=== PATIENT | male | born 1940 | race Asian ===

== ENCOUNTER 2017-04-30 12:46 | Emergency (ER) | payer OTHER ==
[~2017-04-30] VITALS: Ht 165.1 cm; Wt 104.3 kg
[~2017-04-30 12:46] MED LIST: LABE200T28 PO; NIFE-11 PO; TAMS-11 PO
[2017-04-30 12:54] VITALS: BP_SYST 158
[2017-04-30 14:28] VITALS: BP_SYST 170
== END 2017-04-30 14:28 | disposition home or self-care (01) ==
LOC: SED 12:46
DX: M10.9 Gout, unspecified (principal); I10 Essential (primary) hypertension; Z85.46 Personal history of malignant neoplasm of prostate
CPT/HCPCS: 99283

== ENCOUNTER 2018-04-01 19:18 | Inpatient (IN) | payer OTHER ==
[~2018-04-01] VITALS: Ht 157.5 cm; Wt 75.7 kg
[2018-04-01 19:31] VITALS: BP_SYST 165
--- NOTE | 2018-04-01 19:32 | NUR ---
Dr Perez examining patient at triage room for possible CVA symptoms
--- NOTE | 2018-04-01 19:33 | NUR ---
Placed in room 06 . Placed on radiation monitor, blood pressure machine and pulse oximeter. To gown for exam. Side rails up.
[2018-04-01 19:38] VITALS: BP_SYST 165
--- NOTE | 2018-04-01 19:40 | NUR ---
Patient AAO x 3, sitting laying in bed brought in ACLS for c/o severe weakness with possible right sided weakness. Patient states weakness came on last night with increasing weakness througout the day. Patient able to communicate needs, but states he "feels so weak I can't move". Will continue to monitor closely.
[2018-04-01] MEDS ORDERED: NS 500 ML IV ONE (20:15)
[2018-04-01] MEDS ORDERED: METOPROLOL TARTRATE 5 MG/5 ML VIAL IVP ONE ×2 (20:15→22:00)
[2018-04-01] MEDS ORDERED: NACL 0.9% 500 ML IV ONE (20:15)
[2018-04-01 20:25] LABS: ANION GAP 10 (5-15); CALCIUM 9.3 mg/dL (8.4-11.0); CHLORIDE 106 mmol/L (98-107); CREATININE 1.58 mg/dL (0.55-1.30); GLUCOSE 108 mg/dL (70-99); SODIUM SERUM 141 mmol/L (136-145); UREA NITROGEN, BLOOD 25 mg/dL (8-21)
[2018-04-01 20:26] LABS: BASOPHILS # (AUTO) 0.1 K/uL (0.0-0.2); EOSINOPHILS # (AUTO) 0.2 K/uL (0.0-0.4); EOSINOPHILS % (AUTO) 4.1 % (0.0-4.0); HEMOGLOBIN 14.9 g/dL (14.0-18.0); LYMPHOCYTES # (AUTO) 1.4 K/uL (1.0-5.5); LYMPHOCYTES % (AUTO) 27.9 % (20.5-51.5); MEAN CORPUSCULAR HEMOGLOBIN 30 pg (27-31); MEAN CORPUSCULAR HGB CONC 33 % (32-36); MEAN CORPUSCULAR VOLUME 93 fL (79.0-98.0); MONOCYTES # (AUTO) 0.5 K/uL (0.0-1.0); MONOCYTES % (AUTO) 10.4 % (1.7-9.3); NEUTROPHILS % (AUTO) 55.6 % (40.0-70.0); PLATELET COUNT (AUTO) 198 K/uL (130-430); RED BLOOD CELL COUNT(AUTO) 4.96 MIL/uL (4.2-6.2); RED CELL DISTRIBUTION WIDTH 13.1 % (9.0-15.0); WHITE BLOOD COUNT (AUTO) 5.2 K/uL (4.8-10.8)
[2018-04-01 20:29] LABS: ALANINE AMINOTRANSFERASE 25 U/L (12-78); ALBUMIN 3.8 g/dL (3.4-4.8); ASPARTATE AMINOTRANSFERASE 16 U/L (10-37); TOTAL BILIRUBIN 1.2 mg/dL (0.0-1.0)
[2018-04-01] MEDS ORDERED: ONDANSETRON HCL 4 MG/2 ML VIAL IVP ONE (20:30)
--- NOTE | 2018-04-01 20:40 | NUR ---
Patient resting in bed, vital signs stable, no neurological deficits noted. Able to speak and verbalize needs. Will continue to monitor.
[2018-04-01 21:37] LABS: PROTHROMBIN TIME 10.4 SECS (9.5-12.5)
--- NOTE | 2018-04-01 21:40 | NUR ---
ER at bedside speaking with patient and patient's .
[2018-04-01 21:48] LABS: BILIRUBIN,URINE NEGATIVE (NEGATIVE); BLOOD, URINE NEGATIVE (NEGATIVE); CLARITY/URINE CLEAR (CLEAR); COLOR,URINE YELLOW (YELLOW); GLUCOSE,URINE NEGATIVE (NEGATIVE); KETONES,URINE NEGATIVE (NEGATIVE); LEUKOCYTE ESTERASE ,URINE NEGATIVE (NEGATIVE); NITRITE, URINE NEGATIVE (NEGATIVE); PROTEIN URINE 1+ (NEGATIVE); UROBILINOGEN,URINE 0.2 (0.2-1.0)
[2018-04-01] MEDS ORDERED: NIFE90TA48 PO (21:51)
[2018-04-01] MEDS ORDERED: LABE300T PO (21:51)
[2018-04-01] MEDS ORDERED: LOSA100T11 PO (21:52)
[2018-04-01 21:57] LABS: BACTERIA,URINE RARE /HPF (None Seen); RBC,URINE 0-3 /HPF (0-3); WBC,URINE 0-3 /HPF (0-3)
[2018-04-01 21:58] LABS: MUCUS,URINE None Seen /LPF (None Seen)
--- NOTE | 2018-04-01 22:13 | NUR ---
Patient BP: 191/97 at this time. Patient medicated, unable to transfer to TELE at this time until BP has reached a more stable reading. Will continue to monitor. Charge nurse for ED and TELE aware.
--- NOTE | 2018-04-01 22:15 | NUR ---
Patient will be admitted to care of Dr. Muñoz. Admitted to Tele unit. Will go to room 122b. Belongings list completed. Summary report printed. Report will be given at bedside, will remain in ED until BP is stable at this time.
[2018-04-01] MEDS ORDERED: HYDROcodone/ACETAMIN 5-325 MG TAB (NORCO/ VICODIN) PO PRN (22:30)
[2018-04-01] MEDS ORDERED: ONDANSETRON HCL 4 MG/2 ML VIAL IVP PRN (22:30)
[2018-04-01] MEDS ORDERED: HYDROcodone/ACETAMIN 10-325 MG TAB PO PRN (22:30)
[2018-04-01] MEDS ORDERED: LORazepam 2 MG/ML VIAL IVP PRN (22:30)
[2018-04-01] MEDS ORDERED: ACETAMINOPHEN 325 MG TABLET PO PRN (22:30)
--- NOTE | 2018-04-01 22:38 | NUR ---
Patient BP 194/94, ER MD notified.
[2018-04-01] MEDS ORDERED: hydrALAZINE HCL 20 MG/ML VIAL IVP ONE (22:45)
--- NOTE | 2018-04-01 23:05 | NUR ---
Patient will be admitted to care of . Admitted to Tele unit. Will go to room 122. Belongings list completed. Summary report printed. Report will be given at bedside.
--- NOTE | 2018-04-01 23:07 | NUR ---
Consultation Called Reason for Consultation: Hypertension Was consult called: Y Person who was notified: Johan Consulting Physician: Chaparro Mijares Consulting Database Administrator Ordering Physician: Kaushik Mijares
--- NOTE | 2018-04-01 23:09 | NUR ---
ADMISSION: The patient, FRANCISCO PULLIAM, 77 y/o, M admitted by TONE SOOD MD, was given written information regarding hospital policies, unit procedures and contact persons.
--- NOTE | 2018-04-01 23:16 | NUR ---
Consultation Called Reason for Consultation: General weakness Was consult called: Y Person who was notified: Tanesha Consulting Physician: Dr. Esposito Commander Internal Affairs Ordering Physician: Kaushik Mijares
[2018-04-01 23:19] VITALS: BP_SYST 153
--- NOTE | 2018-04-02 | NUR ---
PHYSICAL ASSESSMENT DONE AND RECORDED. INSTRUCTED USE OF CALL LIGHT ,URINAL,BED REST,BED ALARM AND ACTIVITIES,HYGIENE BOTH SALINE LOCKS FLUSHED EASILY. WILL MONITOR BLOOD PRESSURE. ROOM AIR. DENIES SOB NOR CHEST PAIN. HAS GENERALIZED WEAKNESS. MOVES ALL EXTREMITIES SLOWLY. SINUS RHYTHM W/ IST DEGREE AV BLOCK.CALL LIGHT AND URINAL WITHIN REACH. BED IN LOW POSITION FOR SAFETY. WILL MONITOR CLOSELY.+
[2018-04-02 00:45] VITALS: BP_SYST 152
--- NOTE | 2018-04-02 02:00 | NUR ---
RN ROUNDS: RESTING QUITELY . TRY TO VOID USING URINAL. NO DISTRESS.
--- NOTE | 2018-04-02 04:05 | NUR ---
RN ROUNDS: SLEEPING THIS TIME. WILL CHECK BP .
[2018-04-02 04:20] VITALS: BP_SYST 160
--- NOTE | 2018-04-02 05:00 | NUR ---
ROUNDS/ INCONTINENCE: HAS BEEN URINE INCONTINENCE X3. ABLE TO USE URINAL ,STILL LINENS ARE WET. REINSTRUCTED HOW TO USE URINAL CORRECTLY.AURELIO CARE RENDERED BY 2 STAFF.
--- NOTE | 2018-04-02 06:35 | NUR ---
CLOSING: ALL NEEDS WERE ATTENDED. NO ACUTE DISTRESS. SIPS OF WATER GIVEN . NO N/V. SINUS RHYTHM WITH 1ST DEGREE AV RAFAEL. DENIES PAIN.
[2018-04-02] MEDS: NORMAL SALINE 5 ML DISP.SYRIN IVF SCH ×3 (06:42→21:01)
[2018-04-02 07:08] LABS: BASOPHILS % (AUTO) 0.8 % (0.0-2.0); EOSINOPHILS # (AUTO) 0.2 K/uL (0.0-0.4); EOSINOPHILS % (AUTO) 2.7 % (0.0-4.0); HEMATOCRIT 44.5 % (36-54); HEMOGLOBIN 14.7 g/dL (14.0-18.0); LYMPHOCYTES # (AUTO) 1.4 K/uL (1.0-5.5); LYMPHOCYTES % (AUTO) 22.8 % (20.5-51.5); MEAN CORPUSCULAR HEMOGLOBIN 30 pg (27-31); MEAN CORPUSCULAR HGB CONC 33 % (32-36); MEAN CORPUSCULAR VOLUME 92 fL (79.0-98.0); MONOCYTES # (AUTO) 0.5 K/uL (0.0-1.0); MONOCYTES % (AUTO) 8.2 % (1.7-9.3); NEUTROPHILS % (AUTO) 65.5 % (40.0-70.0); PLATELET COUNT (AUTO) 178 K/uL (130-430); RED BLOOD CELL COUNT(AUTO) 4.83 MIL/uL (4.2-6.2); WHITE BLOOD COUNT (AUTO) 6.1 K/uL (4.8-10.8)
[2018-04-02 07:27] LABS: ANION GAP 7 (5-15); CALCIUM 8.4 mg/dL (8.4-11.0); CHLORIDE 107 mmol/L (98-107); CREATININE 1.43 mg/dL (0.55-1.30); GLUCOSE 97 mg/dL (70-99); PHOSPHORUS 2.7 mg/dL (2.7-4.5); POTASSIUM 3.5 mmol/L (3.5-5.1); SODIUM SERUM 139 mmol/L (136-145); UREA NITROGEN, BLOOD 20 mg/dL (8-21)
[2018-04-02 08:00] VITALS: BP_SYST 185
--- NOTE | 2018-04-02 08:00 | NUR ---
Opening Note Report received from [facility] shift nurse. Patient is currently resting in bed. He is awake, however, seems, somewhat confused. IV is on the RFA 20g and lac 22g, both are saline locked. Cardiac consult with Dr. Muñoz and neuro consult with Dr. Esposito are pending. Will continue to monitor.
[2018-04-02] MEDS: LABETALOL HCL 100 MG TABLET PO SCH ×2 (09:00→20:52)
[2018-04-02] MEDS: NIFEDIPINE 30 MG TAB.ER.24 PO SCH (09:00)
[2018-04-02] MEDS: LOSARTAN POTASSIUM 50 MG TABLET (COZAAR) PO SCH (09:34)
--- NOTE | 2018-04-02 10:02 | NUR ---
Rounds Patient is resting in bed. Call light is within reach.
[2018-04-02] MEDS ORDERED: LABETALOL HCL 100 MG TABLET PO ONE (11:15)
[2018-04-02] MEDS ORDERED: NIFEDIPINE 30 MG TAB.ER.24 PO ONE (11:15)
--- NOTE | 2018-04-02 12:32 | NUR ---
MD Rounds Dr. Muñoz rounded on the patient. MD readjusted blood pressure medications.
[2018-04-02 12:36] VITALS: BP_SYST 169
--- NOTE | 2018-04-02 14:35 | NUR ---
Rounds Patient had a 2d echo and carotid US done. Preliminary results were placed in the chart.
--- NOTE | 2018-04-02 16:29 | NUR ---
Rounds Patient is resting in bed. is at the bedside.
[2018-04-02 16:35] VITALS: BP_SYST 147
--- NOTE | 2018-04-02 18:50 | NUR ---
Closing Note Patient is resting in bed. IV is on the RFA 20g and LFA 20g both are saline locked. No signs of distress noted throughout the shift. The is at the bedside. Call light is within reach and bed is in low position. Will endorse care to the oncoming nurse.
[2018-04-02 19:50] VITALS: BP_SYST 143; BP_SYST 146
--- NOTE | 2018-04-02 19:50 | NUR ---
INITIAL NOTE AT INITIAL ASSESSMENT, PATIENT IS RESTING UPRIGHT IN BED, STABLE, NO SIGNS OF RESPIRATORY DISTRESS. PATIENT VERBALIZES NO PAIN. PLAN OF CARE FOR THE EVENING IS COMMUNICATED WITH THE PATIENT. CALL LIGHT- TEACH BACK IS SUCCESSFUL. BED IS LOCKED, ALARMED, AND AT THE LOWEST SETTING.
--- NOTE | 2018-04-02 21:46 | NUR ---
NOTE AT INITIAL ASSESSMENT, PATIENT IS RESTING UPRIGHT IN BED, STABLE, NO SIGNS OF RESPIRATORY DISTRESS. PATIENT VERBALIZES NO PAIN. PLAN OF CARE FOR THE EVENING IS COMMUNICATED WITH THE PATIENT. CALL LIGHT- TEACH BACK IS SUCCESSFUL. BED IS LOCKED, ALARMED, AND AT THE LOWEST SETTING. Addendum: 04/03/18 at 0032 by Tavo Patel RN NOTE INTENDED FOR INITIAL ASSESSMENT PATIENT IS RESTING IN BED, STABLE, NO SIGNS OF RESPIRATORY DISTRESS AT THIS TIME. CALL LIGHT WITHIN REACH. BED IS LOCKED, ALARMED, AND AT THE LOWEST SETTING.
--- NOTE | 2018-04-02 23:41 | NUR ---
NOTE PATIENT IS RESTING IN BED, STABLE, NO SIGNS OF RESPIRATORY DISTRESS AT THIS TIME. CALL LIGHT WITHIN REACH. BED IS LOCKED, ALARMED, AND AT THE LOWEST SETTING.
[2018-04-03 00:42] VITALS: BP_SYST 147
--- NOTE | 2018-04-03 01:36 | NUR ---
NOTE PATIENT IS SLEEPING, STABLE, NO SIGNS OF RESPIRATORY DISTRESS. IS AT BEDSIDE. CALL LIGHT WITHIN REACH. BED IS LOCKED, ALARMED, AND AT THE LOWEST LEVEL.
--- NOTE | 2018-04-03 03:28 | NUR ---
NOTE PATIENT IS SLEEPING, STABLE, NO SIGNS OF RESPIRATORY DISTRESS. IS AT BEDSIDE. CALL LIGHT WITHIN REACH. BED IS LOCKED, ALARMED, AND AT THE LOWEST LEVEL.
--- NOTE | 2018-04-03 04:39 | NUR ---
NOTE PATIENT IS SLEEPING, STABLE, NO SIGNS OF RESPIRATORY DISTRESS. IS AT BEDSIDE. CALL LIGHT WITHIN REACH. BED IS LOCKED, ALARMED, AND AT THE LOWEST LEVEL.
[2018-04-03] MEDS: NORMAL SALINE 5 ML DISP.SYRIN IVF SCH ×2 (06:22→17:29)
--- NOTE | 2018-04-03 06:25 | NUR ---
CLOSING NOTE PATIENT IS SLEEPING, STABLE, NO SIGNS OF RESPIRATORY DISTRESS. IS AT BEDSIDE. CALL LIGHT WITHIN REACH. BED IS LOCKED, ALARMED, AND AT THE LOWEST LEVEL. ISOLATION PRECAUTIONS TAKEN. WILL CONTINUE TO MONITOR UNTIL SHIFT REPORT IS GIVEN AT BEDSIDE TO AM NURSE.
[2018-04-03 06:32] LABS: BASOPHILS # (AUTO) 0.1 K/uL (0.0-0.2); BASOPHILS % (AUTO) 0.9 % (0.0-2.0); EOSINOPHILS # (AUTO) 0.2 K/uL (0.0-0.4); EOSINOPHILS % (AUTO) 2.2 % (0.0-4.0); HEMATOCRIT 45.4 % (36-54); LYMPHOCYTES # (AUTO) 1.2 K/uL (1.0-5.5); LYMPHOCYTES % (AUTO) 13.8 % (20.5-51.5); MEAN CORPUSCULAR HEMOGLOBIN 31 pg (27-31); MEAN CORPUSCULAR HGB CONC 33 % (32-36); MEAN CORPUSCULAR VOLUME 93 fL (79.0-98.0); MONOCYTES # (AUTO) 0.8 K/uL (0.0-1.0); MONOCYTES % (AUTO) 9.2 % (1.7-9.3); NEUTROPHILS # (AUTO) 6.3 K/uL (1.8-7.7); NEUTROPHILS % (AUTO) 73.9 % (40.0-70.0); PLATELET COUNT (AUTO) 181 K/uL (130-430); RED BLOOD CELL COUNT(AUTO) 4.87 MIL/uL (4.2-6.2); RED CELL DISTRIBUTION WIDTH 12.9 % (9.0-15.0); WHITE BLOOD COUNT (AUTO) 8.6 K/uL (4.8-10.8)
[2018-04-03 07:02] LABS: ANION GAP 9 (5-15); CALCIUM 8.6 mg/dL (8.4-11.0); CHLORIDE 105 mmol/L (98-107); CREATININE 1.74 mg/dL (0.55-1.30); GLUCOSE 104 mg/dL (70-99); POTASSIUM 3.6 mmol/L (3.5-5.1); SODIUM SERUM 141 mmol/L (136-145); UREA NITROGEN, BLOOD 24 mg/dL (8-21)
--- NOTE | 2018-04-03 07:30 | NUR ---
Opening Notes: Bedside report given by night nurse kendall. Patient sleeping during rounds. at the bedside. Call light with in reach. Bed locked at lowest position. Bed alarm on.
[2018-04-03 08:10] VITALS: BP_SYST 156
--- NOTE | 2018-04-03 08:11 | NUR ---
am rounds: vital signs taken,afebrile. at the bedside,preparing for breakfast. call light with in reach. bed locked at lowest position. continue to monitor.
[2018-04-03] MEDS: LOSARTAN POTASSIUM 50 MG TABLET (COZAAR) PO SCH (08:41)
[2018-04-03] MEDS: NIFEDIPINE 30 MG TAB.ER.24 PO SCH (08:41)
[2018-04-03] MEDS: LABETALOL HCL 100 MG TABLET PO SCH ×2 (08:42→21:02)
--- NOTE | 2018-04-03 08:59 | NUR ---
PO MEDS: PATIENT TOOK IT SLOWLY WITH PRECAUTIONS.
--- NOTE | 2018-04-03 09:06 | NUR ---
Nutrition Update Julian Scale 17 noted. Pt admitted for HTN debility. Diet: cardiac BMI: 30.5 kg/m2 RD to follow per nutrition care standards.
[2018-04-03 11:28] VITALS: BP_SYST 145
[2018-04-03] MEDS ORDERED: D5/0.45 NS 1,000 ML IV SCH (12:15)
--- NOTE | 2018-04-03 12:27 | NUR ---
Neurology consult: for Dr. Dior, regarding generalized weakness, ordered by Dr. Kaushik Muñoz, spoke with Joan.
--- NOTE | 2018-04-03 12:33 | NUR ---
REFUSED IVF: CALLED DR Pham SOOD REGARDING 'S CONCERNED,NO APPETITE ,SPOKE TO NEURO DR DEE DOES NOT COME HERE AND NOTIFIED AND ORDERED TO CHANGE NEURO TO DR Anurag MORA FOR GENERALIZED WEAKNESS.WITH ORDERS IVF D5 1/2NS AT 100CC/H FOR HYDRATION. PATIENT REFUSED IVF INSTEAD HE SAID HE IS GOING TO EAT LUNCH THIS TIME.WILL INFORM MD. Addendum: 04/03/18 at 1637 by Krista Segal RN ADDED NOTES: DR Pham SOOD NOTIFIED THAT PATIENT REFUSED IVF .
--- NOTE | 2018-04-03 14:30 | NUR ---
Spoke with family re-educated the family on new neuro consult with Dr. Dior as Dr. Esposito does not take consults here anymore, they verbalized understanding and asked when Dr. Dior would be here to see the patient, I informed them that Dr. Dior has already rounded today and any consults have within 24hours to see the patient, patient upset by this information but stated she will not take her home yet. Prior the patient's was thinking to take the patient home against medication advice.
[2018-04-03 15:29] VITALS: BP_SYST 135
--- NOTE | 2018-04-03 16:30 | NUR ---
DIAPER: REQUESTED DIAPER FOR THE PATIENT EVEN AFTER HEALTH TEACHINGS RENDERED,HOSPITAL DOES NOT RECOMMEND DIAPER USED DUE TO INCREASED SKIN BREAK DOWN. UNDERSTANDS AND STILL WANTS DIAPER USED.
--- NOTE | 2018-04-03 16:33 | NUR ---
MD ROUNDS: PATIENT SEEN BY DR Pham SOOD AND TALK TO PATIENT'S DAUGHTER AT [facility] AND UPDATES GIVEN.WAITING FOR NEURO TO SEE THE PATIENT.
--- NOTE | 2018-04-03 16:34 | NUR ---
ADDED NOTES: PER INSURANCE WITH ORDERS DC TRANSFER TO CONTRACTED FACILITY [facility]IA [facility]. FAMILY TO INFORM.
--- NOTE | 2018-04-03 17:24 | NUR ---
DC PLANNING Received call late afternoon from Sary @ [facility], ph [phone], pt OON. Called Sary back & left msg around 1615. Received call from Dr Wanda gordon MD to MD & insurance wants to transfer to [facility]. States ordered to transfer to [facility] Tele bed via [facility] ambulance. Called Sary again @ after hrs #[phone], gone for the day state to call after 5pm for after hrs CM. Called & ordered CD w radiology. Spoke w gamaliel Gaspar @ bedside, informed of OON & order to transfer. States agreeable w transfer that she will call pt's that she is taking a nap @ home. Called & spoke w after hrs CM states to call formerly named [facility], ph [phone]. Called & spoke w Tawanna @ [facility], states will text MD & CM about transfer. Will call nsg station if going to transfer tonight. Pt's nurse Olga updated, packet in nsg station.
--- NOTE | 2018-04-03 17:53 | NUR ---
S.T. SWALLOW EVAL COMPLETED. PT WAS LETHARGIC BUT AROUSABLE AND RESPONSIVE TO P.O. 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 NO S/S OF ASPIRATION. REC: PUREE DIET. THIN LIQUIDS OK. FEED ONLY WHEN FULLY AWAKE. NIECE VERBALIZED UNDERSTANDING OF RESULTS AND REC. NURSE PIERRE NOTIFIED. [id number] CK G8997 CK G8998 CK NOMS LEVEL 4
--- NOTE | 2018-04-03 18:13 | NUR ---
RN ROUNDS: INFORMED PATIENT CAN NOT HAVE REGULAR DIET INSTEAD SPEECH THERAPIST NU RECOMMENDED PUREE,THIN LIQUIDS,FEED ONLY WHEN FULLY AWAKE.PATIENT DOES NOT WANT ANY FOOD THIS TIME.CALLED DIETARY AND LEFT MESSAGE FOR PUREE DIET/THIN LIQUIDS.
--- NOTE | 2018-04-03 18:53 | NUR ---
RN NOTES: INFORMED FRANCIS BROWER AT THE BEDSIDE,THAT WE ARE WAITING FOR BED AVAILABILITY ON CONTRACTED FACILITY AT [place]. IF THERE IS BED AVAILABLE TONIGHT THEN WE WILL CALL THE AT THE GIVEN CELL PHONE NUMBER IN THE CHART IF NOT CASE MGT WILL FOLLOW UP IN THE MORNING.INOCENTE VERBALIZED UNDERSTANDING.
--- NOTE | 2018-04-03 18:58 | NUR ---
END OF SHIFT: STABLE. CONTINUE ENCOURAGEMENT TO PATIENT REGARDING PUREE DIET FOR NOW. CALL LIGHT WITH IN REACH. BED LOCKED AT LOWEST POSITION. BED ALARM ON.
[2018-04-03 19:45] VITALS: BP_SYST 143
--- NOTE | 2018-04-03 19:45 | NUR ---
INITIAL NOTE AT INITIAL ASSESSMENT, PATIENT IS RESTING IN BED, STABLE, NO SIGNS OF RESPIRATORY DISTRESS. PATIENT IS LETHARGIC. PLAN OF CARE FOR THE EVENING IS COMMUNICATED WITH THE PATIENT. PATIENT VERBALIZES NO PAIN. CALL LIGHT TEACH BACK IS SUCCESSFUL. BED IS LOCKED, ALARMED, AND AT THE LOWEST LEVEL.
--- NOTE | 2018-04-03 20:17 | NUR ---
[facility] CALL[facility] CATHY FROM [facility] CALLED AND SAID THEY HAVE A BED FOR PT AT [facility] TELE BED 230 REPORT TO BE GIVEN TO [phone] ACCEPTING DOCTOR IS DOCTOR LORA SETH.
--- NOTE | 2018-04-03 20:23 | NUR ---
[facility] CALLED BACK THEY CALLED BACK AND GAVE ME AUTHORIZATION NUM..[id number] AND WE CAN USE ANY AMBULANCE. AND PT TO BE TRANSPORTED BY [facility].
[2018-04-03 20:28] VITALS: BP_SYST 143
--- NOTE | 2018-04-03 20:33 | NUR ---
VINCE CALLED AND SPOKE WITH MARIBELL AT [facility] SAID ETA 30-45 MIN. GOING [facility]
--- NOTE | 2018-04-03 21:02 | NUR ---
BONNIE EDWARDS COMMUNICATION ROS Ayala (GRACE) FROM [facility] CALLED AT THIS TIME, FULL REPORT IS GIVEN TO THE NURSE AT THIS TIME. ROS HAS REQUESTED TO KEEP PATIENT'S IV AT THIS TIME. PATIENT'S IV ON LEFT AC 18 GAUGE WILL BE KEPT IN, 5 MLS NS FLUSHED WITH NO RESISTANCE FOR PATENCY CHECK, IT HAS ALSO BEEN SECURED AND LOCKED WITH A STERILE CAP. PATIENT WILL BE UNDER THE CARE OF DR. IGNACIO SETH IN ROOM 230 WITH VERBAL COMFIRMATION FROM GRACE SOMMER. Addendum: 04/03/18 at 2157 by Tavo Patel RN RN IS ROS Woods, NOT ROS Ayala
--- NOTE | 2018-04-03 21:03 | NUR ---
IV D/C PATIENT'S IV ON RIGHT FOREARM 22 GAUGE HAS BEEN D/C, TIP INTACT, NO ACTIVE BLEED NOTED. PATIENT TOLERATED WELL.
--- NOTE | 2018-04-03 21:05 | NUR ---
COMMUNICATION WITH FAMILY PATIENT'S THADDEUS HAS BEEN MADE AWARE THAT THE PATIENT WILL BE TRANSFERRED TO [facility]. SHE STATED SHE WILL BE TAKING ALL THE PATIENT'S BELONGINGS EXCEPT THE PATIENT'S SHOES WHICH HAS BEEN PLACED IN A PATIENT BELONGING BAG WITH HIS NAME AND ROOM NUMBER IN [facility]. IS AT BEDSIDE, SHE HAS SIGNED TRANSFER ACKNOWLEDGEMENT CONSENT, AND WILL BE FOLLOWING THE [facility] TRANSPORT TO [facility] WITH PERSONAL VEHICLE.
--- NOTE | 2018-04-03 21:37 | NUR ---
PATIENT DISCHARGED PATIENT REPORT GIVEN AT BEDSIDE TO [facility] TRANSPORTER, PATIENT IS STABLE, NO SIGNS OF RESPIRATORY DISTRESS. PATIENT HAS BEEN CLEANED AND GIVEN FRESH ORANGE LINENS FOR TRANSFER. IS AT BEDSIDE. DISCHARGE PACKET HAS BEEN COMPLETE. TRANSFER ACKNOWLEDGEMENT HAS BEEN SIGNED. PATIENT BELONGINGS HAVE BEEN CHECKED, WILL BE TAKING ALL OF PATIENT'S BELONGS EXCEPT HIS SHOES THAT HAVE BEEN PLACED IN A PATIENT BAG WITH PATIENT'S NAME AND NEW ROOM NUMBER, [facility] TRANSPORTER WILL BRING SHOES WITH PATIENT. PATIENT'S IV IN LEFT AC IS PATENT, HAS BEEN SECURED, AND STERILE CAPPED. PATIENT WILL BE TAKEN IN [facility] BY ROS TAPIA RN AND UNDER THE CARE OF DR. IGNACIO SETH IN ROOM 230, COMMUNICATION AND CONFIRMATION HAS BEEN COMPLETED WITH GRACE SOMMER, TELE BED IS PREPARED FOR PATIENT'S ARRIVAL.
== END 2018-04-03 21:37 | disposition short-term general hospital (02) | DRG 64 ==
LOC: SED 19:18 → STU 22:07
PROVIDERS: ADMIT Preventive Medicine Preventive Medicine/Occupational Environmental Medicine; ATTEND Preventive Medicine Preventive Medicine/Occupational Environmental Medicine
DX: I63.9 Cerebral infarction, unspecified (principal); N17.0 Acute kidney failure with tubular necrosis; I25.10 Atherosclerotic heart disease of native coronary artery without angina pectoris; M10.9 Gout, unspecified; I11.9 Hypertensive heart disease without heart failure; E78.5 Hyperlipidemia, unspecified; Z85.46 Personal history of malignant neoplasm of prostate
CPT/HCPCS: 36415; 70450-TC; 71045; 80048; 80053; 81000-TC; 83605; 83735-TC; 83880; 84100-TC; 84484; 85025; 85610-TC; 85730-TC; 87040-TC; 87086; 92610-GN; 93005; 93306; 93880; 96361; 96374; 96375; 96376; 97116-GP; 99285; J0360; J2405; J3490; J7030; J7040

== ENCOUNTER 2024-06-24 20:33 | Inpatient (IN) | payer OTHER ==
[~2024-06-24] VITALS: Ht 177.8 cm; Wt 70.3 kg
[~2024-06-24 20:33] MED LIST changes: +DOXY100T2 PO; +FENO134C19 PO; -LABE200T28 PO; +LABE300T4 PO; +LIP20 PO; -NIFE-11 PO; +NIFE90TA48 PO; -TAMS-11 PO
[2024-06-24 20:45] VITALS: BP_SYST 136; PULSE 70; RESP 16; TEMP 97.6; O2SAT 97
[2024-06-24] MEDS: NITROGLYCERIN 1 INCH (GM) OINT. TP ONE (20:56)
[2024-06-24] MEDS: MORPHINE 4 MG INJ. 4 MG/ML VIAL IVP ONE (21:09)
[2024-06-24 21:39] LABS: BASOPHILS % (AUTO) 0.6 % (0.0-2.0); EOSINOPHILS # (AUTO) 0.4 K/uL (0.0-0.4); EOSINOPHILS % (AUTO) 6.1 % (0.0-4.0); HEMATOCRIT 42.6 % (36-54); HEMOGLOBIN 14.9 g/dL (14.0-18.0); LYMPHOCYTES # (AUTO) 1.8 K/uL (1.0-5.5); LYMPHOCYTES % (AUTO) 28.7 % (20.5-51.5); MEAN CORPUSCULAR HEMOGLOBIN 32 pg (27-31); MEAN CORPUSCULAR HGB CONC 35 % (32-36); MEAN CORPUSCULAR VOLUME 92 fL (79.0-98.0); MONOCYTES # (AUTO) 0.6 K/uL (0.0-1.0); MONOCYTES % (AUTO) 9.8 % (1.7-9.3); NEUTROPHILS # (AUTO) 3.5 K/uL (1.8-7.7); NEUTROPHILS % (AUTO) 54.8 % (40.0-70.0); PLATELET COUNT (AUTO) 193 K/uL (130-430); RED BLOOD CELL COUNT(AUTO) 4.66 MIL/uL (4.2-6.2); RED CELL DISTRIBUTION WIDTH 14.5 % (9.0-15.0); WHITE BLOOD COUNT (AUTO) 6.3 K/uL (4.8-10.8)
[2024-06-24 21:54] LABS: ALANINE AMINOTRANSFERASE 29 U/L (12-78); ALBUMIN 3.7 g/dL (3.4-4.8); ANION GAP 9 (5-15); BILIRUBIN,DIRECT 0.1 mg/dL (0.0-0.3); CALCIUM 9.2 mg/dL (8.4-11.0); CARBON DIOXIDE 26 mmol/L (23-29); CHLORIDE 106 mmol/L (98-107); CREATININE 1.83 mg/dL (0.55-1.30); GLUCOSE 122 mg/dL (74-106); POTASSIUM 3.9 mmol/L (3.5-5.1); SODIUM SERUM 141 mmol/L (136-145); TOTAL BILIRUBIN 0.6 mg/dL (0.0-1.0); TOTAL PROTEIN, SERUM 7.7 g/dL (6.4-8.3); UREA NITROGEN, BLOOD 36 mg/dL (8-21)
[2024-06-24 22:08] LABS: ASPARTATE AMINOTRANSFERASE 375 U/L (10-37)
[2024-06-24] MEDS ORDERED: AZITHROMYCIN 500 MG/VIAL (ZITHROMAX) IV ONE (22:35)
[2024-06-24] MEDS: AZITHROMYCIN 500 MG in NS 250 ML IV ONE (22:42)
[2024-06-24] MEDS: cefTRIAXone 1 GM IVPB PREMIX 50 ML IV ONE (23:12)
[2024-06-25 00:52] VITALS: BP_SYST 135; PULSE 64; RESP 18; TEMP 97.8
[2024-06-25 01:24] VITALS: O2SAT 96
[2024-06-25 07:36] VITALS: BP_SYST 133; PULSE 65; RESP 16; TEMP 97.9; O2SAT 99
[2024-06-25 08:00] VITALS: O2SAT 97
[2024-06-25] MEDS ORDERED: FENOFIBRATE MICRONIZED PO SCH (09:15)
[2024-06-25] MEDS ORDERED: HYDROcodone/ACETAMIN 10-325 MG TAB PO PRN (09:15)
[2024-06-25] MEDS ORDERED: ONDANSETRON HCL 4 MG/2 ML VIAL IVP PRN (09:15)
[2024-06-25] MEDS ORDERED: HYDROcodone/ACETAMIN 5-325 MG TAB (NORCO/ VICODIN) PO PRN (09:15)
[2024-06-25] MEDS ORDERED: ACETAMINOPHEN 325 MG TABLET PO PRN ×2 (09:15→09:30)
[2024-06-25] MEDS ORDERED: LORazepam 2 MG/ML VIAL IVP PRN (09:15)
[2024-06-25] MEDS ORDERED: NALOXONE HCL 0.4 MG/ML AMP (NARCAN) IVP PRN ×2 (09:15)
[2024-06-25 10:14] LABS: BASOPHILS % (AUTO) 0.6 % (0.0-2.0); EOSINOPHILS # (AUTO) 0.4 K/uL (0.0-0.4); EOSINOPHILS % (AUTO) 7.5 % (0.0-4.0); HEMATOCRIT 40.3 % (36-54); HEMOGLOBIN 13.5 g/dL (14.0-18.0); LYMPHOCYTES # (AUTO) 1.2 K/uL (1.0-5.5); LYMPHOCYTES % (AUTO) 20.7 % (20.5-51.5); MEAN CORPUSCULAR HEMOGLOBIN 31 pg (27-31); MEAN CORPUSCULAR HGB CONC 34 % (32-36); MEAN CORPUSCULAR VOLUME 93 fL (79.0-98.0); MONOCYTES # (AUTO) 0.5 K/uL (0.0-1.0); MONOCYTES % (AUTO) 8.3 % (1.7-9.3); NEUTROPHILS # (AUTO) 3.8 K/uL (1.8-7.7); NEUTROPHILS % (AUTO) 62.9 % (40.0-70.0); PLATELET COUNT (AUTO) 187 K/uL (130-430); RED BLOOD CELL COUNT(AUTO) 4.34 MIL/uL (4.2-6.2); RED CELL DISTRIBUTION WIDTH 14.5 % (9.0-15.0)
[2024-06-25] MEDS: D5/0.45 NS 1,000 ML IV SCH (10:45)
[2024-06-25] MEDS: cefTRIAXone 1 GM IVPB PREMIX 50 ML IV SCH (10:46)
[2024-06-25] MEDS: AZITHROMYCIN 500 MG in NS 250 ML IV SCH (10:47)
[2024-06-25 11:12] LABS: ALANINE AMINOTRANSFERASE 24 U/L (12-78); ALBUMIN 3.3 g/dL (3.4-4.8); ANION GAP 9 (5-15); CALCIUM 8.8 mg/dL (8.4-11.0); CARBON DIOXIDE 24 mmol/L (23-29); CHLORIDE 107 mmol/L (98-107); CREATININE 1.84 mg/dL (0.55-1.30); GLUCOSE 126 mg/dL (74-106); POTASSIUM 3.6 mmol/L (3.5-5.1); SODIUM SERUM 140 mmol/L (136-145); TOTAL BILIRUBIN 0.8 mg/dL (0.0-1.0); UREA NITROGEN, BLOOD 31 mg/dL (8-21)
[2024-06-25 11:16] VITALS: BP_SYST 146; PULSE 74; RESP 16; TEMP 99; O2SAT 98
[2024-06-25 11:48] LABS: ASPARTATE AMINOTRANSFERASE 22 U/L (10-37)
[2024-06-25] MEDS: LOSARTAN POTASSIUM 50 MG TABLET (COZAAR) PO SCH (18:12)
[2024-06-25 20:40] VITALS: BP_SYST 147; PULSE 68; TEMP 97.7; O2SAT 94
[2024-06-25] MEDS ORDERED: LABETALOL HCL PO SCH (21:00)
[2024-06-25] MEDS: ATORVASTATIN 20 MG TABLET PO SCH (21:56)
[2024-06-25] MEDS: LABETALOL HCL 100 MG TABLET PO SCH (21:57)
[2024-06-26 01:53] VITALS: BP_SYST 160; PULSE 61; RESP 18; O2SAT 95
[2024-06-26 07:18] LABS: BASOPHILS % (AUTO) 0.6 % (0.0-2.0); EOSINOPHILS # (AUTO) 0.5 K/uL (0.0-0.4); EOSINOPHILS % (AUTO) 8.4 % (0.0-4.0); HEMATOCRIT 41.9 % (36-54); HEMOGLOBIN 13.9 g/dL (14.0-18.0); LYMPHOCYTES # (AUTO) 1.6 K/uL (1.0-5.5); LYMPHOCYTES % (AUTO) 25.4 % (20.5-51.5); MEAN CORPUSCULAR HEMOGLOBIN 31 pg (27-31); MEAN CORPUSCULAR HGB CONC 33 % (32-36); MEAN CORPUSCULAR VOLUME 92 fL (79.0-98.0); MONOCYTES # (AUTO) 0.6 K/uL (0.0-1.0); MONOCYTES % (AUTO) 9.8 % (1.7-9.3); NEUTROPHILS # (AUTO) 3.5 K/uL (1.8-7.7); NEUTROPHILS % (AUTO) 55.8 % (40.0-70.0); PLATELET COUNT (AUTO) 170 K/uL (130-430); RED BLOOD CELL COUNT(AUTO) 4.53 MIL/uL (4.2-6.2); RED CELL DISTRIBUTION WIDTH 14.5 % (9.0-15.0); WHITE BLOOD COUNT (AUTO) 6.3 K/uL (4.8-10.8)
[2024-06-26 07:46] LABS: ANION GAP 10 (5-15); CALCIUM 8.6 mg/dL (8.4-11.0); CARBON DIOXIDE 28 mmol/L (23-29); CHLORIDE 107 mmol/L (98-107); CREATININE 1.46 mg/dL (0.55-1.30); GLUCOSE 97 mg/dL (74-106); POTASSIUM 3.7 mmol/L (3.5-5.1); SODIUM SERUM 145 mmol/L (136-145); UREA NITROGEN, BLOOD 19 mg/dL (8-21)
[2024-06-26 08:33] VITALS: BP_SYST 180; PULSE 64; RESP 14; TEMP 98.8; O2SAT 97
[2024-06-26] MEDS: NIFEDIPINE 90 MG TABLET.SA (PROCARDIA XL 90 MG) PO SCH (09:13)
[2024-06-26 10:22] VITALS: O2SAT 97
[2024-06-26 12:05] VITALS: BP_SYST 159; PULSE 62; RESP 15; TEMP 98.2; O2SAT 98
[2024-06-26 16:03] VITALS: BP_SYST 160; PULSE 63; RESP 17; TEMP 98.5; O2SAT 97
[2024-06-26 20:29] VITALS: BP_SYST 103; PULSE 68; RESP 16; TEMP 99.3
[2024-06-27 00:25] VITALS: BP_SYST 145; PULSE 67; RESP 24; TEMP 98.7; O2SAT 96
[2024-06-27 07:56] LABS: BASOPHILS % (AUTO) 0.7 % (0.0-2.0); EOSINOPHILS # (AUTO) 0.5 K/uL (0.0-0.4); EOSINOPHILS % (AUTO) 9.7 % (0.0-4.0); HEMATOCRIT 41.3 % (36-54); HEMOGLOBIN 13.9 g/dL (14.0-18.0); LYMPHOCYTES # (AUTO) 1.7 K/uL (1.0-5.5); LYMPHOCYTES % (AUTO) 31.1 % (20.5-51.5); MEAN CORPUSCULAR HEMOGLOBIN 31 pg (27-31); MEAN CORPUSCULAR HGB CONC 34 % (32-36); MEAN CORPUSCULAR VOLUME 93 fL (79.0-98.0); MONOCYTES # (AUTO) 0.5 K/uL (0.0-1.0); MONOCYTES % (AUTO) 9.1 % (1.7-9.3); NEUTROPHILS # (AUTO) 2.7 K/uL (1.8-7.7); NEUTROPHILS % (AUTO) 49.4 % (40.0-70.0); PLATELET COUNT (AUTO) 181 K/uL (130-430); RED BLOOD CELL COUNT(AUTO) 4.46 MIL/uL (4.2-6.2); RED CELL DISTRIBUTION WIDTH 14.5 % (9.0-15.0); WHITE BLOOD COUNT (AUTO) 5.4 K/uL (4.8-10.8)
[2024-06-27 08:00] VITALS: O2SAT 94
[2024-06-27 08:02] LABS: ALANINE AMINOTRANSFERASE 22 U/L (12-78); ANION GAP 10 (5-15); ASPARTATE AMINOTRANSFERASE 20 U/L (10-37); CALCIUM 8.6 mg/dL (8.4-11.0); CARBON DIOXIDE 26 mmol/L (23-29); CHLORIDE 108 mmol/L (98-107); CREATININE 1.51 mg/dL (0.55-1.30); GLUCOSE 105 mg/dL (74-106); PHOSPHORUS 3.3 mg/dL (2.7-4.5); POTASSIUM 3.4 mmol/L (3.5-5.1); SODIUM SERUM 144 mmol/L (136-145); TOTAL PROTEIN, SERUM 6.5 g/dL (6.4-8.3); UREA NITROGEN, BLOOD 21 mg/dL (8-21)
[2024-06-27 08:10] LABS: ERYTHROCYTE SEDIMENTATION RATE 18 MM/HR (0-15)
[2024-06-27 08:23] LABS: TOTAL BILIRUBIN 0.9 mg/dL (0.0-1.0)
[2024-06-27 08:40] VITALS: BP_SYST 118; PULSE 85; RESP 16; TEMP 98.5; O2SAT 94
[2024-06-27] MEDS: POTASSIUM CHLORIDE 20 MEQ TABLET.ER PO ONE (11:12)
[2024-06-27] MEDS: NORMAL SALINE 5 ML DISP.SYRIN IVF SCH (15:12)
[2024-06-27 16:00] VITALS: BP_SYST 105; PULSE 73; RESP 16; TEMP 99.3; O2SAT 95
[2024-06-27 21:05] VITALS: BP_SYST 131; PULSE 68; RESP 20; TEMP 98.3; O2SAT 95
[2024-06-28 00:23] VITALS: BP_SYST 131; BP_SYST 146; PULSE 56; PULSE 63; RESP 16; TEMP 98.4; TEMP 98.5; O2SAT 96; O2SAT 97
[2024-06-28 07:20] LABS: ANION GAP 9 (5-15); CALCIUM 8.9 mg/dL (8.4-11.0); CARBON DIOXIDE 27 mmol/L (23-29); CHLORIDE 109 mmol/L (98-107); CREATININE 1.54 mg/dL (0.55-1.30); GLUCOSE 94 mg/dL (74-106); POTASSIUM 4.1 mmol/L (3.5-5.1); SODIUM SERUM 145 mmol/L (136-145); UREA NITROGEN, BLOOD 24 mg/dL (8-21)
[2024-06-28 07:25] LABS: BASOPHILS % (AUTO) 0.9 % (0.0-2.0); EOSINOPHILS # (AUTO) 0.5 K/uL (0.0-0.4); HEMATOCRIT 41.2 % (36-54); HEMOGLOBIN 13.9 g/dL (14.0-18.0); LYMPHOCYTES # (AUTO) 1.6 K/uL (1.0-5.5); LYMPHOCYTES % (AUTO) 33.4 % (20.5-51.5); MEAN CORPUSCULAR HEMOGLOBIN 31 pg (27-31); MEAN CORPUSCULAR HGB CONC 34 % (32-36); MEAN CORPUSCULAR VOLUME 93 fL (79.0-98.0); MONOCYTES # (AUTO) 0.4 K/uL (0.0-1.0); MONOCYTES % (AUTO) 9.2 % (1.7-9.3); NEUTROPHILS # (AUTO) 2.2 K/uL (1.8-7.7); NEUTROPHILS % (AUTO) 45.5 % (40.0-70.0); PLATELET COUNT (AUTO) 187 K/uL (130-430); RED BLOOD CELL COUNT(AUTO) 4.44 MIL/uL (4.2-6.2); RED CELL DISTRIBUTION WIDTH 14.4 % (9.0-15.0); WHITE BLOOD COUNT (AUTO) 4.8 K/uL (4.8-10.8)
[2024-06-28 07:49] LABS: ERYTHROCYTE SEDIMENTATION RATE 23 MM/HR (0-15)
[2024-06-28 08:36] VITALS: O2SAT 96
[2024-06-28 08:45] VITALS: BP_SYST 126; PULSE 68; RESP 16; TEMP 98.1; O2SAT 96
[2024-06-28] MEDS ORDERED: AMOX-423 PO (09:20)
[2024-06-28] MEDS ORDERED: LOSA-413 PO (09:20)
[2024-06-28 09:44] VITALS: BP_SYST 126; PULSE 68; RESP 16; TEMP 98.1; O2SAT 96
[2024-06-28 11:14] VITALS: BP_SYST 124; PULSE 65; RESP 16; TEMP 98.2; O2SAT 96
== END 2024-06-28 10:30 | disposition home or self-care (01) | DRG 193 ==
LOC: SED 20:33 → STU 23:14
PROVIDERS: ADMIT Preventive Medicine Preventive Medicine/Occupational Environmental Medicine; ATTEND Preventive Medicine Preventive Medicine/Occupational Environmental Medicine
DX: J18.9 Pneumonia, unspecified organism (principal); N17.0 Acute kidney failure with tubular necrosis; E83.41 Hypermagnesemia; D64.9 Anemia, unspecified; E78.5 Hyperlipidemia, unspecified; E87.6 Hypokalemia; E88.09 Other disorders of plasma-protein metabolism, not elsewhere classified; I10 Essential (primary) hypertension; I25.10 Atherosclerotic heart disease of native coronary artery without angina pectoris; I71.21 Aneurysm of the ascending aorta, without rupture; N28.1 Cyst of kidney, acquired; Z85.46 Personal history of malignant neoplasm of prostate; Z79.899 Other long term (current) drug therapy; Z88.8 Allergy status to other drugs, medicaments and biological substances
CPT/HCPCS: 36415; 71045; 76700; 78579; 78580; 80048; 80053; 80076; 83605; 83735; 83880; 83935; 84100; 84302; 84484; 85025; 85379; 85651; 87040; 93005; 93306; 93880; 96365; 99285; A9539; A9540; G0378; J0456; J0696; J2270; J7040; J7050